=== PATIENT | female | born 1955 | race Caucasian/White ===

== ENCOUNTER 2020-04-04 13:31 | Emergency (ER) | payer OTHER ==
[2020-04-04 14:52] LABS: HEMOGLOBIN 19.1 gm/dl (12.3-15.3); RED BLOOD COUNT 5.75 M/UL (4.00-5.10); WHITE BLOOD COUNT 10.7 K/UL (4.5-11.0)
[2020-04-04 15:25] LABS: BUN/CREATININE RATIO 16 (0-10)
[2020-04-04] MEDS ORDERED: AUGMENTIN 875-1 EACH PO (20:21)
[2020-04-04] MEDS ORDERED: ZOFRAN ODT 4 MG4 MG SL (20:23)
== END 2020-04-04 21:24 | disposition home or self-care (01) ==
LOC: ER1 13:31
PROVIDERS: Emergency Medicine
DX: K52.9 Noninfective gastroenteritis and colitis, unspecified (principal); E87.6 Hypokalemia; R42 Dizziness and giddiness; E78.5 Hyperlipidemia, unspecified; Z20.822 Contact with and (suspected) exposure to COVID-19; E78.00 Pure hypercholesterolemia, unspecified; E03.9 Hypothyroidism, unspecified; F17.200 Nicotine dependence, unspecified, uncomplicated; Z90.89 Acquired absence of other organs; Z98.84 Bariatric surgery status
CPT/HCPCS: 36415; 70450; 80053; 81001; 82550; 82553; 83605; 83690; 83874; 84484; 85025; 85379; 87040; 93005; 96374; 99284; J2405; J7030; Q9967; U0002